=== PATIENT | female | born 1945 | race Caucasian/White ===

== ENCOUNTER 2024-09-29 16:07 | Inpatient (IN) | payer MEDICARE ==
[2024-09-29] VITALS (9 sets, daily range): BP systolic 98–122; BP diastolic 46–71; PULSE 76–97; RESP 14–21; TEMP 36.4; O2SAT 92–99
[~2024-09-29] VITALS: Ht 165.1 cm; Wt 101.2 kg
[2024-09-29 18:00] LABS: BASOPHILS % 0.3 % (0.0-2.0); EOSINOPHILS % 0.5 % (0.0-5.0); HEMATOCRIT. 43.3 % (36.0-48.0); HEMOGLOBIN. 14.6 g/dL (12.0-16.0); MEAN CORPUSCULAR HEMOGLOBIN 33.4 pg (28.0-32.0); MEAN CORPUSCULAR HGB CONC 33.6 g/dL (31.0-37.0); MEAN CORPUSCULAR VOLUME 99.4 fL (81.0-99.0); MEAN PLATELET VOLUME 7.2 fl (7.4-10.4); MONOCYTES % 8.3 % (2.0-8.0); NEUTROPHILS % 73.9 % (40.0-76.0); PLATELET 205 x1000/uL (130-400); RED BLOOD CELL COUNT 4.36 mill/uL (4.2-5.4); RED CELL DISTRIBUTION WIDTH 14.3 % (11.6-14.6); WHITE BLOOD COUNT 9.1 x1000/uL (4.5-11.0)
[2024-09-29 18:12] LABS: CHLORIDE 103 mEq/L (98-107); POTASSIUM 4.2 mEq/L (3.5-5.1); SODIUM 139 mEq/L (136-145)
[2024-09-29 18:13] LABS: CARBON DIOXIDE 26 mEq/L (21-32)
[2024-09-29 18:14] LABS: CALCIUM 9.7 mg/dL (8.7-10.4)
[2024-09-29 18:18] LABS: CREATININE 0.7 mg/dL (0.6-1.0); GLUCOSE 164 mg/dL (70-105); UREA NITROGEN BLOOD 15 mg/dL (9-23)
[2024-09-29 18:19] LABS: ETHANOL BLOOD < 10 mg/dL (<10)
[2024-09-29] MEDS ORDERED: NICARDIPINE 50 MG in SODIUM CHLORIDE 0.9% 230 ML IV PRN (18:30)
[2024-09-29 18:35] LABS: TROPONIN I HIGH SENSITIVITY 800 ng/L (3.0-34)
[2024-09-29 18:36] LABS: LACTIC ACID 2.3 mmol/L (0.4-2.0)
[2024-09-29] MEDS: NICARDIPINE 40MG/200ML PREMIX 200 ML IV PRN (19:01)
[2024-09-29 20:01] LABS: PROTHROMBIN TIME 10.3 sec (9.6-11.0)
[2024-09-29] MEDS ORDERED: DEXT 5%/0.45% NACL 1000ML 1,000 ML IV SCH (20:45)
[2024-09-29] MEDS: DEXT 5%/LACTATED RINGERS 1,000 ML IV SCH (20:56)
[2024-09-29] MEDS: DEXAMETHASONE 4MG/ML 1ML VIAL IV SCH (23:30)
[2024-09-30] VITALS (81 sets, daily range): BP systolic 57–158; BP diastolic 20–111; PULSE 73–93; RESP 6–27; TEMP 36.4–37.2; O2SAT 90–98
[2024-09-30] MEDS: ONDANSETRON HCL 4MG/2ML INJ IV PRN (03:18)
[2024-09-30 06:10] LABS: TROPONIN I HIGH SENSITIVITY 3663 ng/L (3.0-34)
[2024-09-30] MEDS: PANTOPRAZOLE SODIUM 40 MG/VIAL IV SCH (10:09)
[2024-10-01] VITALS (87 sets, daily range): BP systolic 97–150; BP diastolic 52–124; PULSE 72–94; RESP 8–31; TEMP 36.4–36.9; O2SAT 88–100
[2024-10-01] MEDS: IOHEXOL-350 100 ML BOTTLE ONE (10:10)
[2024-10-01] MEDS: NIFEDIPINE XL 30MG TAB PO SCH (10:10)
[2024-10-01] MEDS: NICARDIPINE 100 MG in SODIUM CHLORIDE 0.9% 60 ML IV PRN (16:46)
[2024-10-01] MEDS ORDERED: MAGNESIUM/ALUMINUM HYDROXIDE/SIMETHICONE 30ML UDC PO PRN (17:45)
[2024-10-01] MEDS ORDERED: ANAS1TAB49 MT (17:53)
[2024-10-01] MEDS: FAMOTIDINE 20MG TABLET PO SCH (21:00)
[2024-10-01] MEDS: LOSARTAN 25 MG TABLET PO SCH (21:45)
[2024-10-01] MEDS: ATORVASTATIN CALCIUM 40MG TABLET PO SCH (21:46)
[2024-10-02] VITALS (27 sets, daily range): BP systolic 113–144; BP diastolic 26–95; PULSE 73–85; RESP 10–20; TEMP 35.8–36.6; O2SAT 92–99
[2024-10-02] MEDS: LEVOTHYROXINE SODIUM 75MCG TABLET PO SCH (06:24)
[2024-10-02] MEDS: ANASTROZOLE 1 MG TABLET PO SCH (08:42)
[2024-10-02] MEDS ORDERED: ANASTROZOLE 1 MG TABLET PO SCH (09:00)
[2024-10-02] MEDS: DEXAMETHASONE 4MG/ML 1ML VIAL IV SCH (18:07)
[2024-10-02] MEDS: FAMOTIDINE 20MG TABLET PO SCH (18:08)
[2024-10-03] VITALS: BP 151/80; PULSE 72; RESP 20; TEMP 36.6; O2SAT 100
[2024-10-03 04:00] VITALS: BP 150/80; PULSE 79; RESP 20; TEMP 36.5; O2SAT 95
[2024-10-03] MEDS: ANASTROZOLE 1 MG TABLET PO SCH (06:32)
[2024-10-03] MEDS ORDERED: CHOL500051 PO (06:33)
[2024-10-03] MEDS ORDERED: LEVO75TA PO (06:33)
[2024-10-03] MEDS ORDERED: CLOP75TA33 PO (06:33)
[2024-10-03] MEDS ORDERED: LOSA25TA26 PO (06:33)
[2024-10-03] MEDS ORDERED: PRAV40TA58 PO (06:33)
[2024-10-03] MEDS ORDERED: FAMO40TA7 PO (06:33)
[2024-10-03] MEDS ORDERED: CYCL1DRO14 EACHEYE (06:33)
[2024-10-03] MEDS ORDERED: ANAS1TAB49 PO (06:33)
[2024-10-03] MEDS ORDERED: MIRA50TA PO (06:33)
[2024-10-03 08:00] VITALS: BP 154/74; PULSE 76; RESP 19; TEMP 36.7; O2SAT 99
[2024-10-03] MEDS: DULOXETINE HCL 30MG DR CAPSULE PO SCH (08:14)
[2024-10-03] MEDS: FAMOTIDINE 20MG TABLET PO SCH (10:00)
[2024-10-03 12:00] VITALS: BP 145/73; PULSE 76; RESP 19; TEMP 36.7; O2SAT 99
[2024-10-03 16:00] VITALS: BP 139/75; PULSE 79; RESP 19; TEMP 36.9; O2SAT 99
[2024-10-03 20:00] VITALS: BP 156/85; PULSE 80; RESP 20; TEMP 36.4; O2SAT 98
[2024-10-04] VITALS: BP 169/89; PULSE 69; RESP 16; TEMP 35.9; O2SAT 99
[2024-10-04] MEDS: CLONIDINE 0.1MG TABLET PO PRN (00:55)
[2024-10-04 04:00] VITALS: BP 172/93; PULSE 68; RESP 16; TEMP 36.5; O2SAT 99
[2024-10-04 08:00] VITALS: BP 163/94; PULSE 68; RESP 20; TEMP 36.4; O2SAT 100
[2024-10-04 12:00] VITALS: BP 130/72; PULSE 66; RESP 20; TEMP 36.4; O2SAT 98
[2024-10-04 16:00] VITALS: BP 140/78; PULSE 69; RESP 20; TEMP 36.5; O2SAT 96
[2024-10-04 20:00] VITALS: BP 159/85; PULSE 68; RESP 20; TEMP 36.7; O2SAT 97
[2024-10-04 21:39] LABS: CHLORIDE 105 mEq/L (98-107); POTASSIUM 3.7 mEq/L (3.5-5.1); SODIUM 140 mEq/L (136-145)
[2024-10-04 21:40] LABS: CALCIUM 8.3 mg/dL (8.7-10.4); CARBON DIOXIDE 29 mEq/L (21-32)
[2024-10-04 21:41] LABS: BASOPHILS % 0.2 % (0.0-2.0); DIFFERENTIAL COMMENT 0; EOSINOPHILS % 0.4 % (0.0-5.0); HEMATOCRIT. 41.7 % (36.0-48.0); HEMOGLOBIN. 13.9 g/dL (12.0-16.0); LYMPHOCYTES % 16.5 % (20.0-50.0); MEAN CORPUSCULAR HEMOGLOBIN 33.4 pg (28.0-32.0); MEAN CORPUSCULAR HGB CONC 33.4 g/dL (31.0-37.0); MEAN CORPUSCULAR VOLUME 100.2 fL (81.0-99.0); MEAN PLATELET VOLUME 7.1 fl (7.4-10.4); MONOCYTES % 10.8 % (2.0-8.0); NEUTROPHILS % 72.1 % (40.0-76.0); PLATELET 216 x1000/uL (130-400); RED BLOOD CELL COUNT 4.17 mill/uL (4.2-5.4)
[2024-10-04 21:45] LABS: CREATININE 0.6 mg/dL (0.6-1.0); GLUCOSE 95 mg/dL (70-105); UREA NITROGEN BLOOD 15 mg/dL (9-23)
[2024-10-05] VITALS: BP 171/89; PULSE 64; RESP 20; TEMP 36.6; O2SAT 97
[2024-10-05 04:00] VITALS: BP 166/89; PULSE 66; RESP 17; TEMP 36.2; O2SAT 100
[2024-10-05 08:00] VITALS: BP 142/78; PULSE 67; RESP 17; TEMP 35.9; O2SAT 98
[2024-10-05] MEDS: DOCUSATE SODIUM 250MG CAPSULE PO SCH (09:00)
[2024-10-05 12:00] VITALS: BP 108/72; PULSE 64; RESP 16; TEMP 36.4; O2SAT 96
[2024-10-05 16:00] VITALS: BP 132/73; PULSE 70; RESP 16; TEMP 36.3; O2SAT 98
[2024-10-05 20:00] VITALS: BP 136/74; PULSE 79; RESP 18; TEMP 36.4; O2SAT 100
[2024-10-06] VITALS: BP 162/82; PULSE 72; RESP 18; TEMP 36.5; O2SAT 100
[2024-10-06 04:00] VITALS: BP 152/91; PULSE 66; RESP 18; TEMP 36.6; O2SAT 100
[2024-10-06 08:00] VITALS: BP 98/59; PULSE 62; RESP 17; TEMP 36.7; O2SAT 99
[2024-10-06] MEDS ORDERED: METH1TAB33 MT (10:54)
[2024-10-06 12:00] VITALS: BP_SYST 137; BP_DIAS 62; BP_DIAS 67; PULSE 63; RESP 17; TEMP 36.4; TEMP 36.7; O2SAT 98
[2024-10-06 16:00] VITALS: BP 139/67; PULSE 67; RESP 18; TEMP 36.4; O2SAT 98
[2024-10-06 20:00] VITALS: BP 141/74; PULSE 60; RESP 18; TEMP 36.4; O2SAT 99
[2024-10-06] MEDS: POLYETHYLENE GLYCOL 3350 (17GM) 1 DOSE PACK PO SCH (21:46)
[2024-10-07 04:00] VITALS: BP 160/89; PULSE 70; RESP 18; TEMP 36.5; O2SAT 96
[2024-10-07 08:00] VITALS: BP 152/83; PULSE 67; RESP 19; TEMP 36.3; O2SAT 99
[2024-10-07 12:00] VITALS: BP 146/64; PULSE 70; RESP 19; TEMP 35.9; O2SAT 96
[2024-10-07 16:00] VITALS: BP 135/58; PULSE 72; RESP 18; TEMP 36.7; O2SAT 99
[2024-10-07 20:00] VITALS: BP 137/71; PULSE 92; RESP 20; TEMP 36.7; O2SAT 95
[2024-10-07] MEDS: ACETAMINOPHEN 325MG TABLET PO PRN (23:46)
[2024-10-08] VITALS: BP 149/69; PULSE 72; RESP 20; TEMP 36.7; O2SAT 97
[2024-10-08 04:00] VITALS: BP 152/75; PULSE 68; RESP 20; TEMP 36.3; O2SAT 100
[2024-10-08 08:00] VITALS: BP 124/66; PULSE 60; RESP 16; TEMP 36.7; O2SAT 99
[2024-10-08] MEDS ORDERED: CEFTRIAXONE 1GM/50ML 50 ML IV SCH (11:30)
[2024-10-08] MEDS ORDERED: LEVOFLOXACIN 500MG TABLET PO STA (12:08)
[2024-10-08 12:13] VITALS: BP 168/84; PULSE 69; TEMP 97.2; O2SAT 97
== END 2024-10-08 12:25 | DRG 64 ==
LOC: ER 16:07 → ENRESERV 19:08 → MICUNO 20:12 → 7EST 10-02 13:30
PROVIDERS: ADMIT Internal Medicine; ATTEND Internal Medicine
DX: I61.4 Nontraumatic intracerebral hemorrhage in cerebellum (principal); G93.41 Metabolic encephalopathy; I21.4 Non-ST elevation (NSTEMI) myocardial infarction; G81.91 Hemiplegia, unspecified affecting right dominant side; E78.00 Pure hypercholesterolemia, unspecified; I10 Essential (primary) hypertension; Z68.36 Body mass index [BMI] 36.0-36.9, adult; I16.0 Hypertensive urgency; E03.9 Hypothyroidism, unspecified; E66.812 Obesity, class 2; H91.90 Unspecified hearing loss, unspecified ear; Z96.651 Presence of right artificial knee joint; I44.4 Left anterior fascicular block; Z85.3 Personal history of malignant neoplasm of breast; Z86.73 Personal history of transient ischemic attack (TIA), and cerebral infarction without residual deficits; Z92.21 Personal history of antineoplastic chemotherapy; Z90.49 Acquired absence of other specified parts of digestive tract
CPT/HCPCS: 36415; 70496; 70498; 71045; 80048; 80320; 83605; 83880; 84145; 84484; 85025; 86850; 86900; 87077; 87186; 92610; 93005; 93306; 97116; 97162; 97166; 97530; 97535; 99291; A4606; A6261; J0696; J1100; J2405; J2470; J3490; J7050; J7121; Q9967; G0480